=== PATIENT | male | born 1955 | race Caucasian/White ===

== ENCOUNTER 2016-11-11 09:22 | Emergency (ER) | payer OTHER ==
[~2016-11-11] VITALS: Ht 167.6 cm; Wt 63.6 kg
[2016-11-11 09:26] VITALS: BP 148/82; PULSE 63; RESP 14; O2SAT 98
--- NOTE | 2016-11-11 09:30 | ED.REPORT ---
HPI-Stroke / CVA Nov 11, 2016 ED Provider: Dr. Lenz The pt is a 61 y/o male on Aspirin and Plavix and with a hx of CVA (in 2014), recent shingles on the back and arthritis who presents to the ED complaining of vision change that lasted 20 minutes yesterday around 1700. He took an Aspirin immediately and noted improvement in his sx. The pt is asymptomatic in the ED. The pt describes his sx as triangular shaped flashing lights that blocked out his peripheral vision initially and then grew in size to block his vision completely. He associates his sx with stress but he is concerned because he experienced the same vision change previously when he was diagnosed with CVA at [facility]. At that time he also presented with other sx including numbness and weakness in one arm and aphasia. The pt denies experiencing these sx yesterday. He was told to get an ultrasound for possible carotid stenosis. He has been unable to make an appointment due to scheduling conflict with work. He takes "a lot of Tylenol". He denies hx of heart murmurs. Nursing Notes Stated Complaint: POSS CVA Chief Complaint: Neuro Symptoms/ Deficits Nursing Notes Reviewed: Yes ([employer], meds not reconciled) Allergies: Coded Allergies: No Known Allergies (Unverified , 11/11/16) General Time Seen by Provider: 09:34 Chief Complaint Vision, lost (temporarily; resolved) Eye right, Eye left Hx Obtained From: Patient Arrived By: Walk-in Time last known well Pt is asymptomatic Sudden in Onset?: Yes Symptom Duration: 16 - 30 minutes (20 minutes) Progression Since Onset: Resolved Severity: Current: No pain currently Severity: Maximum: No pain Recent Healthcare: No recent doctor visit Similar Sx Previous: Yes Risk Factors NIH Stroke Scale Level of Consciousness: Alert and responsive (0) Ask Month & Age: 1 question right (1) Open/Close Eyes/Hand Glass Vial Bending Conveyor Feeder: Performs both tasks (0) Horizontal EO Movements: None (0) Visual Valenzuela: No visual loss (0) Facial Palsy: Normal symmetry (0) Right Arm Motor Drift (10s): No drift 10 sec (0) Left Arm Motor Drift (10s): No drift 10 sec (0) Right Leg Motor Drift (5s): No drift 5 sec (0) Left Leg Motor Drift (5s): No drift 5 sec (0) Limb Ataxia FNF/Heel-Ulloa: No ataxia (0) Sensation (Arms/Legs/Face): No sensory loss (0) Language Aphasia: No aphasia, normal (0) Dysarthria: No dysarthria, normal (0) Extinction/Inattention: No exctinct/inattent (0) NIHSS Score: 0 Time NIHSS Performed: 09:41 Date NIHSS Performed: Nov 11, 2016 Past Medical History Past Medical History CVA (in 2014) Arthritis Shingles on the back Past Surgical History Hip and rib surgery (due to trauma) Bladder surgery (due to ruptured bladder after a trauma) Smoking History Current Every Day Smoker Social History Alcohol Use: "Social" (rarely) Ambulatory Status Independent Review of Systems Neurologic: Reports: Vision change (lasted 20 minutes yesterday), Denies: Focal weakness, Numbness, Unable to speak Complete sys rev & neg: except as marked. Physical Exam Initial Vital Signs Vital Signs (First) Date Time Temp Pulse Resp B/P Pulse Ox O2 Delivery O2 Flow Rate FiO2 11/11/16 09:26 36.2 63 14 148/82 98 Room Air Initial VS: Reviewed Extremities: Vascular intact, Neuro intact, No swelling, No tenderness Skin: Warm, Dry, No cyanosis General/Constitutional: Awake, Alert, No acute distress, Well appearing, Cooperative Head / Eyes: Atraumatic, Normocephalic, PERRL, EOMI Neck: Atraumatic, Supple, Full range of motion Respiratory / Chest: Atraumatic, No respiratory distress, No wheezing Cardiovascular: Heart rate NL, Regular rhythm Neurologic: Oriented X3, Speech NL, No motor deficits, No sensory deficits, CN II - XII intact Back: Atraumatic, Full range of motion, Painless range of motion Interpretation & Diagnostics PROCEDURE: US BILATERAL DUPLEX DOPPLER IMAGING OF THE CAROTIDS ([id number]) IMPRESSION: 1. 50-69% right internal carotid artery stenosis. 2. Less than 50% left internal carotid artery stenosis Dictated by: Sunny Mays RRA Interpreted: Jude Moran MD on 11/11/2016 at 12:50 Approved by: Jude Moran M.D. on 11/11/2016 at 13:16 Lab Results Interpretation Result Diagram: 11/11/16 0958 11/11/16 0958 Test 11/11/16 09:58 11/11/16 10:15 8/3/17 12:00 White Blood Count 7.9th/mm3 (3.8-10.1) Red Blood Count 5.42mil/mm3 (4.40-5.80) Hemoglobin 17.8g/dL (13.8-17.2) Hematocrit 51.8% (41.0-50.0) Mean Corpuscular Volume 95.6fL (81-100) Mean Corpuscular Hemoglobin 32.8pg (27.0-35.0) Mean Corpuscular Hemoglobin Concent 34.4% (32.0-37.0) Red Cell Distribution Width 14.6% (12.3-15.4) Platelet Count 273bil/L (150-400) Neutrophils (%) (Auto) 67.8% (40-74) Lymphocytes (%) (Auto) 20.4% (14-46) Monocytes (%) (Auto) 9.8% (4-12) Eosinophils (%) (Auto) 1.3% (0-5) Basophils (%) (Auto) 0.4% (0-3) Prothrombin Time 10.0sec (8.1-12.5) Prothromb Time International Ratio 0.94ratio Activated Partial Thromboplast Time 27.1sec (22.8-33.0) Sodium Level 140mEq/L (134-144) Potassium Level 4.2mEq/L (3.5-5.2) Chloride Level 103mEq/L (97-108) Carbon Dioxide Level 21mmol/L (18-29) Blood Urea Nitrogen 20mg/dL (8-27) Creatinine 1.22mg/dL (0.76-1.27) Estimat Glomerular Filtration Rate 64mL/min (>59) Glucose Level 100mg/dL (60-99) Calcium Level 9.4mg/dL (8.5-10.1) Total Bilirubin 0.5mg/dL (0.0-1.2) Aspartate Amino Transf (AST/SGOT) 25U/L (0-50) Alanine Aminotransferase (ALT/SGPT) 20U/L (0-44) Alkaline Phosphatase 63U/L (25-160) Troponin T < 0.010ug/L (0.0-0.011) Total Protein 7.7g/dL (6.4-8.4) Albumin 4.6g/dL (3.4-5.0) Urine Color Straw (YELLOW) Urine Appearance Hazy (CLEAR,HAZY) Urine pH 5.5 (5.0-8.0) Urine Specific Louise 1.005 (1.003-1.035) Urine Protein Negativemg/dL (NEG,TRACE) Urine Glucose (UA) Negativemg/dL (NEGATIVE) Urine Ketones Negativemg/dL (NEGATIVE) Urine Occult Blood Small (NEGATIVE) Urine Nitrite Negative (NEGATIVE) Urine Bilirubin Negative (NEGATIVE) Urine Urobilinogen Normalmg/dL (NORMAL) Urine Leukocyte Esterase Negative (NEGATIVE) Urine RBC 0-2/hpf (0-2) Urine WBC 0-5/hpf (0-5) Urine Epithelial Cells Occasional/hpf (NONE-MOD) Urine Crystals None seen (NONE SEEN) Urine Bacteria None/hpf (NONE-FEW) Urine Hyaline Casts None/lpf (NONE) Urine Granular Casts None seen (NONE SEEN) Urine Waxy Casts None seen (NONE SEEN) Urine Red Blood Cell Casts None seen (NONE SEEN) Urine White Blood Cell Casts None seen (NONE SEEN) Urine Mucus None seen (None Seen) Urine Trichomonas None seen (NONE SEEN) Urine Yeast None (NONE SEEN) Urinalysis Comment None Urine Culture Reflexed Not indicated Hold Joyner Top Tube Received (Received) Lab Results Interpretation: CBC no leukocytosis, polycythemia consistent with tobacco abuse CMP normal ECG Interpretation Time: 09:47 Interpreted by: ED physician Normal ECG Interpretation: Normal ECG w/ rate of... (61), Normal sinus rhythm CT Head Interpretation IMPRESSION: Normal for age, source of current symptoms is not seen. Dictated by: Derek Herrera M.D. on 11/11/2016 at 10:07 Approved by: Derek Herrera M.D. on 11/11/2016 at 10:07 Study: Head CT no contrast Interpretation / Wet Read by: Interpret - Radiologist Re-Eval/Medical Decision Med Decision/Clinical Course This is a pleasant 61-year-old male presents referred in for evaluation for the possibility of a TIA CVA. Patient reports he had a stroke with left-sided symptoms and also include some visual symptoms in the left eye several years ago , he is on aspirin and Plavix and he does have known carotid stenosis status post be having an ultrasound done of his carotids but has not been able to schedule this due to work. He is on aspirin and Plavix, and yesterday had flashing lights in the left eye, and says that that was somewhat reminiscent to when he had the stroke, but he did not have any the other ice associated symptoms of numbness or weakness of his leg like he had before. But he said he should come get checked out. He is not currently having any symptoms visual or otherwise. His stroke scale is 0. He is a smoker. A CT brain was obtained and is negative. Lab work was normal. He is in a sinus rhythm. Carotid ultrasound was obtained to help facilitate the workup, CT as a note for work up and there is some carotid stenosis, but is not clear immediate surgical candidate. Given his symptoms are isolated flashing lights in the left eye, and concern regarding the possibility of warning signs of an early retinal detachment, that is in the differential, perhaps higher than CVA. So at this point I am not finding indication the patient requires hospitalization, but has had the patient up for follow-up with an school crossing guard for further evaluation of left eye. I recommended close follow-up with the PCP, can advise continued aspirin and Plavix, and that he work on smoking cessation. Patient discharged in good condition with routine precautions. Source of Hx: Old records Re-Evaluation/Progress : Time of Eval: 12:35 Re-Evaluation/Progress Note: Rechecked pt. Discussed lab results, imaging results, diagnosis and plan to discharge. Pt understands and agrees with the plan. F/U instruction and RTER warning given. All questions addressed. Counseled Regarding: Diagnosis, Lab results, Need for follow-up, When/why to return to ED Patient Discharge & Departure Impression: Primary Impression: Visual problems Additional Impression: Carotid artery stenosis Laterality: unspecified laterality Qualified Code: I65.29 - Occlusion and stenosis of unspecified carotid artery Disposition: Home Discharge Condition All VS Reviewed: Yes Condition: Stable Additional Instructions: 1. Your CT scan revealed no signs of a stroke. 2. Your blood tests were normal. 3. We were able to perform your carotid ultrasound, and there is some narrowing of the vessels-but not so severe that emergent surgery is indicated. We are still waiting for the final read of the radiologist, and the results will be sent to your primary care physician. 4. Continue your aspirin and Plavix. 5. One of the best things to reduce her stroke risk is to work on stopping smoking. 6. We have set you up for an appointment at [facility] for an ophthalmologic evaluation (see address/contact info below), as the flashing lights he described can sometimes be indicative of an early retinal problem, an school crossing guard Perform a more detailed evaluation of the retina that we can. 7. Return if new or worsening symptoms. Your appointment Please arrive at [facility] at 3:45 today. Address: [address] [place] [address] (by the [facility]) Referrals: Hector Majano (PCP) Scribe Attestation Portions of this note were transcribed by Kushal Torrez. I,, personally performed the history, physical exam and medical decision-making;I reviewed and confirmed the accuracy of the information in the transcribed note. Signed by Ira Vela. 11/11/16 copies to: Hector Majano Matthew F MD Nov 11, 2016 09:30 Kushal Torrez Nov 11, 2016 09:42
[2016-11-11 10:09] LABS: BASOPHILS % (AUTO) 0.4 % (0-3); EOSINOPHILS % (AUTO) 1.3 % (0-5); MONOCYTES % (AUTO) 9.8 % (4-12); Mean Corpuscular Hemoglobin 32.8 pg (27.0-35.0); Mean Corpuscular Volume 95.6 fL (81-100); NEUTROPHILS % (AUTO) 67.8 % (40-74); Platelet Count 273 bil/L (150-400)
--- NOTE | 2016-11-11 10:10 | DRSVH ---
PROCEDURE: CT BRAIN WITHOUT CONTRAST ([id number]) INDICATIONS: Stroke TECHNIQUE: Noncontrast 4.5 mm thick angled axial sections acquired from the foramen magnum to the vertex, with c oronal reformats. COMPARISON: Outside Film, CT, CT BRAIN WO CON, 06/12/2014, 10:39. FINDINGS: Image quality: Excellent. CSF spaces: Basal cisterns are patent. No extra-axial fluid collections. Ventricles are normal in size and shape. Brain: No midline shift. No intracranial masses or hemorrhage. Milian-white matter interface is norm al. Skull and face: Calvarium and visualized facial bones are intact, without suspicious lesions. Sinuses: Visualized sinuses and mastoids are clear. IMPRESSION: Normal for age, source of current symptoms is not seen. Dictated by: Derek Herrera M.D. on 11/11/2016 at 10:07 Approved by: Derek Herrera M.D. on 11/11/2016 at 10:07
[2016-11-11 10:28] LABS: INR 0.94 ratio
[2016-11-11 10:49] LABS: TROPONIN T < 0.010 ug/L (0.0-0.011)
--- NOTE | 2016-11-11 11:11 | NUR ---
Evaluation completed. Please go to "Notes" then click on "Assessments and Notes" (bottom left corner of screen). Then select appropriate discipline tab on top of screen.
[2016-11-11 11:17] LABS: APPEARANCE,URINE HAZY (CLEAR,HAZY); COLOR,URINE STRAW (YELLOW); OCCULT BLOOD,URINE SMALL (NEGATIVE); PH,URINE 5.5 (5.0-8.0); UROBILINOGEN,URINE NORMAL (NORMAL)
[2016-11-11 11:54] VITALS: BP 130/77; PULSE 53; RESP 16; O2SAT 98
--- NOTE | 2016-11-11 13:18 | DRSVH ---
PROCEDURE: US BILATERAL DUPLEX DOPPLER IMAGING OF THE CAROTIDS ([id number]) INDICATIONS: TIA, ho stenosis TECHNIQUE: Color and pulse Doppler interrogation was performed of both carotid systems, with image documentation and velocity measurements. COMPARISON: [facility] Ultrasound, US, US CAROTID DPLX DOPPLER BILAT, 08/15/2015, 16:08. FINDINGS: All stenosis calculations are based on NASCET criteria. Right side: Brachial blood pressure: 142 to mm Hg. Common Carotid Artery(Distal) PSV: 54.50 cm/s Internal Carotid Artery PSV- Proximal: 140.70 cm/s Mid-lon.30 cm/s Distal: 74.60 cm/s EDV - Proximal: 37.90 cm/s Mid-lon.50 cm/s Distal: 20.80 cm/s External Carotid Artery(Proximal) PSV: 100 cm/s ICA/CCA PSV ratio: 2.8 Milian scale imaging description: Moderate plaque. Percent internal carotid artery stenosis: 50-69% stenosis. Vertebral artery: Flow direction is antegrade. Left side: Brachial blood pressure: Not obtained. Common Carotid Artery(Distal) PSV: 69.40 cm/s Internal Carotid Artery PSV - Proximal: 41.40 cm/s Mid-lon cm/s Distal: 74.60 cm/s EDV - Proximal: 13.30 cm/s Mid-lon.70 cm/s Distal: 27.30 cm/s External Carotid Artery(Proximal) PSV: 77.30 cm/s ICA/CCA PSV ratio: 1.1 Milian scale imaging description: Minimal plaque. Percent internal carotid artery stenosis: Less than 50% stenosis. Vertebral artery: Flow direction is antegrade. IMPRESSION: 1. 50-69% right internal carotid artery stenosis. 2. Less than 50% left internal carotid artery stenosis Dictated by: Sunny Mays [facility] Interpreted: Jude Moran MD on 11/11/2016 at 12:50 Approved by: Jude Moran M.D. on 11/11/2016 at 13:16
[2016-11-11 13:19] VITALS: BP 123/68; PULSE 54; RESP 17; O2SAT 98
== END 2016-11-11 13:20 | disposition home or self-care (01) ==
LOC: SED 09:22
DX: H53.19 Other subjective visual disturbances (principal); I65.29 Occlusion and stenosis of unspecified carotid artery; I10 Essential (primary) hypertension; M19.90 Unspecified osteoarthritis, unspecified site; F17.200 Nicotine dependence, unspecified, uncomplicated; Z86.73 Personal history of transient ischemic attack (TIA), and cerebral infarction without residual deficits; Z86.19 Personal history of other infectious and parasitic diseases; Z79.82 Long term (current) use of aspirin; Z79.02 Long term (current) use of antithrombotics/antiplatelets